=== PATIENT | female | born 1995 | race Caucasian/White ===

== ENCOUNTER → 2017-05-08 | Outpatient (REF) | payer BC | LOC: M LAB REF 14:55 | DX: R19.7 Diarrhea, unspecified (principal) | CPT/HCPCS: 87177 ==

== ENCOUNTER → 2017-09-20 | Outpatient (REF) | payer BC | LOC: M LAB REF 16:39 | DX: J02.9 Acute pharyngitis, unspecified (principal) | CPT/HCPCS: 87070 ==

== ENCOUNTER 2018-08-19 04:06 | Emergency (ER) | payer BC, OTHER ==
[~2018-08-19] VITALS: Ht 170.2 cm; Wt 62.0 kg
[2018-08-19] MEDS ORDERED: MICR1TAB18 PO (04:13)
[2018-08-19] MEDS ORDERED: SERT-138 PO (04:13)
[2018-08-19] MEDS ORDERED: LEVO25TA5 PO (04:13)
[2018-08-19 04:54] LABS: BASO # 0.1 10^3/uL (0.0-0.2); BASO % 0.6 % (0.0-1.0); EOS # 0.2 10^3/uL (0.0-0.50); EOS % 2.5 % (0.0-3.0); HEMATOCRIT 42.4 % (36.0-47.0); HEMOGLOBIN 14.4 g/dl (12.0-15.5); LYMPH # 3.6 10^3/uL (1.5-6.5); LYMPH % 45.2 % (24.0-44.0); MEAN CORPUSCULAR HEMOGLOBIN 31.4 pg (27.0-33.0); MEAN CORPUSCULAR VOLUME 92.6 fl (80.0-96.0); MONO # 0.5 10^3/uL (0.0-0.8); MONO % 6.7 % (0.0-5.0); NEUTROPHILS # 3.5 10^3/uL (1.8-7.7); NEUTROPHILS % 44.9 % (36.0-66.0); PLATELET COUNT, AUTOMATED 300 10^3/uL (150-450); RED BLOOD COUNT 4.58 10^6/uL (4.00-5.40); WHITE BLOOD COUNT 7.9 10^3/uL (4.0-10.0)
[2018-08-19 05:07] LABS: ALBUMIN 4.3 GM/DL (3.2-5.2); ALT/SGPT 15 U/L (12-78); BILIRUBIN,DIRECT 0.3 MG/DL (0.0-0.2); BLOOD UREA NITROGEN 16 MG/DL (7-18); CALCIUM LEVEL 9.1 MG/DL (8.5-10.1); CARBON DIOXIDE LEVEL 27 MEQ/L (21-32); CHLORIDE LEVEL 105 MEQ/L (98-107); CREATININE FOR GFR 0.96 MG/DL (0.55-1.30); GLOMERULAR FILTRATION RATE > 60.0 (>60); GLUCOSE, FASTING 89 MG/DL (70-100); LIPASE 175 U/L (73-393); POTASSIUM SERUM 3.8 MEQ/L (3.5-5.1); SODIUM LEVEL 138 MEQ/L (136-145); TOTAL PROTEIN 8.1 GM/DL (6.4-8.2)
[2018-08-19 05:27] LABS: HCG, SERUM QUALITATIVE NEGATIVE (NEGATIVE)
[2018-08-19 08:02] VITALS: BP 112/70
--- NOTE | 2018-08-19 08:13 | REPVR ---
EXAM: US Pelvis Complete (transabdominal and transvaginal) EXAM DATE/TIME: 08/19/18 (7:34am) CLINICAL HISTORY: 23 year old female with RLQ pain TECHNIQUE: Imaging protocol: Real-time transabdominal and transvaginal pelvic ultrasound with image documentation. Complete examination. COMPARISON: No relevant prior studies available FINDINGS: The LMP is reported to be: approx. 4 weeks ago The uterus is anteverted, measuring 6.9 x 2.0 x 4.1 cm in dimensions. No uterine mass is seen. The endometrium is thin (2 mm thickness). The right ovary measures 2.1 x 1.7 x 1.5 cm in size. The left ovary measures 1.4 x 1.4 x 1.5 cm in size. There is no evidence of ovarian torsion on Doppler evaluation. No free pelvic fluid is seen. No solid adnexal masses. The urinary bladder appears unremarkable. No stones nor mass. Urinary bladder volume = 114 ml. IMPRESSION: No acute pathology. No abnormal mass. No free fluid. The ovaries are unremarkable, with no evidence of torsion. Electronically signed by: Lauren Ramsey On 08/19/2018 08:13:44 AM
== END 2018-08-19 08:01 | disposition home or self-care (01) ==
LOC: M ED 04:06
DX: R10.31 Right lower quadrant pain (principal); R11.0 Nausea; F33.9 Major depressive disorder, recurrent, unspecified; F41.9 Anxiety disorder, unspecified; E03.9 Hypothyroidism, unspecified; Z79.899 Other long term (current) drug therapy; Z79.890 Hormone replacement therapy; Z79.3 Long term (current) use of hormonal contraceptives